=== PATIENT | male | born 1995 | race Caucasian/White ===

== ENCOUNTER 2017-10-24 07:07 | Emergency (ER) | payer OTHER ==
[2017-10-24] MEDS ORDERED: Sodium Chloride 0.9% 1000 ML 1,000 ML IV STA ×2 (07:35→10:17)
[2017-10-24] MEDS ORDERED: Zofran 4 MG/2 ML VIAL IV ONE (07:35)
--- NOTE | 2017-10-24 07:40 | ERPHSYRPT ---
- History of Present Illness Time Seen by Provider: 10/24/17 07:34 Source: patient, EMS, police Exam Limitations: intoxication Physician History: The patient is a 22-year-old male brought in by ambulance with the [facility] from a local town where he was found stumbling and apparently intoxicated this morning by people in town. One neighbor reports that he had fallen into their small kiddie pool 3 or 4 times. Another neighbor stated that he had fallen into their small glass light ornaments around their flower garden. When the patient arrives, he was not able to communicate at all. He had been vomiting after being transported. He arrives in a c-collar because there was a small laceration to the back of his head and it was unclear if his neck was involved. After the patient had been here for a few minutes, he began to verbalize that he was at a local bar drinking large quantities of beer. Timing/Duration: today Severity: severe Modifying Factors: Improves With: nothing Associated Symptoms: nausea, vomiting, other (intoxication) Allergies/Adverse Reactions: UNOBTAINABLE Allergy (Unverified 10/24/17 07:30) Home Medications: No Reportable Medications [No Reported Medications] 10/24/17 [History] - Review of Systems Constitutional: No Fever, No Chills Eyes: No Symptoms Ears, Nose, & Throat: No Symptoms Respiratory: No Cough, No Dyspnea Cardiac: No Chest Pain, No Edema, No Syncope Abdominal/Gastrointestinal: Nausea, Vomiting, No Abdominal Pain, No Diarrhea Genitourinary Symptoms: No Symptoms Musculoskeletal: Fall, Injury Skin: No Rash Neurological: Gait Changes, Lethargy, Speech Changes, Other (intoxication) Psychological: Alcohol Abuse Endocrine: No Symptoms Hematologic/Lymphatic: No Symptoms Immunological/Allergic: No Symptoms All Other Systems: Reviewed and Negative - Past Medical History Other Medical History: UNABLE TO OBTAIN - Past Surgical History Other Surgical History: UNABLE TO OBTAIN - Nursing Vital Signs Nursing Vital Signs: Initial Vital Signs Temperature 97.6 F 10/24/17 07:29 Pulse Rate 67 10/24/17 07:29 Respiratory Rate 16 10/24/17 07:29 Blood Pressure 126/72 10/24/17 07:29 O2 Sat by Pulse Oximetry 99 10/24/17 07:29 Pain Scale Pain Intensity 0 - Physical Exam General Appearance: moderate distress Eye Exam: PERRL/EOMI, eyes nml inspection Ears, Nose, Throat Exam: normal ENT inspection, TMs normal, pharynx normal, moist mucous membranes Neck Exam: normal inspection, non-tender, supple, full range of motion Respiratory Exam: normal breath sounds, lungs clear, No respiratory distress Cardiovascular Exam: regular rate/rhythm, normal heart sounds, normal peripheral pulses Gastrointestinal/Abdomen Exam: soft, normal bowel sounds, No tenderness, No mass Male Genitalia Exam: normal genitalia Rectal Exam: not done Back Exam: normal inspection, normal range of motion, No CVA tenderness, No vertebral tenderness Extremity Exam: normal inspection, normal range of motion, pelvis stable Neurologic Exam: intoxicated appearance, slurred speech Skin Exam: normal color, laceration (small laceration to occiput) Lymphatic Exam: No adenopathy SpO2 Interpretation: normal SpO2: 99 Oxygen Delivery: Room Air - Course EKG Interpreted by Me: RATE, Sinus Rhythm, NORMAL AXIS, NORMAL INTERVALS, NORMAL QRS, NORMAL ST-T Ordered Tests: Active Orders 24 hr Category Date Time Status Manager Legal STAT Care 10/24/17 07:35 Active EKG-ER Only STAT Care 10/24/17 07:35 Active IV Insertion STAT Care 10/24/17 07:35 Active ACETAMINOPHEN Stat Lab 10/24/17 07:33 Completed CBC W DIFF Stat Lab 10/24/17 07:33 Completed CMP Stat Lab 10/24/17 07:33 Completed ETHYL ALCOHOL Stat Lab 10/24/17 07:33 Completed ETHYL ALCOHOL Stat Lab 10/24/17 11:45 Completed SALICYLATE Stat Lab 10/24/17 07:33 Completed UA W/RFX UR CULTURE Stat Lab 10/24/17 07:37 Completed Urine Triage Profile Stat Lab 10/24/17 07:37 Completed Medication Summary Discontinued Medications Generic Name Dose Route Start Last Admin Trade Name Freq PRN Reason Stop Dose Admin Sodium Chloride 1,000 mls @ 999 mls/hr 10/24/17 07:35 10/24/17 09:19 Sodium Chloride 0.9% 1000 Ml IV 10/24/17 08:35 Infused .Q1H1M STA Infusion Sodium Chloride Confirm 10/24/17 07:53 Sodium Chloride 0.9% 1000 Ml Administered 10/24/17 07:54 Dose 1,000 mls @ ud .ROUTE .STK-MED ONE Sodium Chloride 1,000 mls @ 999 mls/hr 10/24/17 10:17 10/24/17 11:31 Sodium Chloride 0.9% 1000 Ml IV 10/24/17 11:17 Infused .Q1H1M STA Infusion Sodium Chloride Confirm 10/24/17 10:21 Sodium Chloride 0.9% 1000 Ml Administered 10/24/17 10:22 Dose 1,000 mls @ ud .ROUTE .STK-MED ONE Ondansetron HCl 4 mg 10/24/17 07:35 10/24/17 07:46 Zofran 4 Mg/2 Ml Vial IV 10/24/17 07:36 4 mg STAT ONE Administration Lab/Rad Data: Laboratory Result Diagrams 10/24/17 07:33 10/24/17 07:33 Laboratory Results 10/24/17 10/24/17 10/24/17 Range/Units 11:45 07:37 07:37 WBC (4.0-10.5) K/mm3 RBC (4.1-5.6) M/mm3 Hgb (12.5-18.0) gm/dl Hct (42-50) % MCV (78-100) fl MCH (26-32) pg MCHC (32-36) g/dl RDW (11.5-14.0) % Plt Count (150-450) K/mm3 MPV (6-9.5) fl Gran % (36.0-66.0) % Eos # (Auto) (0-0.5) Absolute Lymphs (auto) (1.0-4.6) Absolute Monos (auto) (0.0-1.3) Lymphocytes % (24.0-44.0) % Monocytes % (0.0-12.0) % Eosinophils % (0.00-5.0) % Basophils % (0.0-0.4) % Absolute Granulocytes (1.4-6.9) Basophils # (0-0.4) Sodium (137-145) mmol/L Potassium (3.5-5.1) mmol/L Chloride (98-107) mmol/L Carbon Dioxide (22-30) mmol/L Anion Gap (5-15) MEQ/L BUN (9-20) mg/dL Creatinine (0.66-1.25) mg/dL Estimated GFR ML/MIN Glucose (74-106) mg/dL Calcium (8.4-10.2) mg/dL Total Bilirubin (0.2-1.3) mg/dL AST (17-59) U/L ALT (0-50) U/L Alkaline Phosphatase (38-126) U/L Serum Total Protein (6.3-8.2) g/dL Albumin (3.5-5.0) g/dL Ur Collection Type CATH Urine Color YELLOW (YELLOW) Urine Appearance CLEAR (CLEAR) Urine pH 5.0 (5-6) Ur Specific Gibbs 1.010 (1.005-1.025) Urine Protein NEGATIVE (Negative) Urine Ketones NEGATIVE (NEGATIVE) Urine Blood NEGATIVE (0-5) Ethan/ul Urine Nitrite NEGATIVE (NEGATIVE) Urine Bilirubin NEGATIVE (NEGATIVE) Urine Urobilinogen NORMAL (0-1) mg/dL Ur Leukocyte Esterase NEGATIVE (NEGATIVE) Urine Culture Reflexed NO (NO) Urine Glucose NEGATIVE (NEGATIVE) mg/dL Salicylates (2-20) mg/dL Urine Opiates Level NEGATIVE (NEGATIVE) Ur Methadone NEGATIVE (NEGATIVE) Acetaminophen (10-30) ug/ml Urine Barbiturates NEGATIVE (NEGATIVE) Ur Phencyclidine (PCP) NEGATIVE (NEGATIVE) Urine Amphetamine NEGATIVE (NEGATIVE) U Benzodiazepine Level NEGATIVE (NEGATIVE) Urine Cocaine NEGATIVE (NEGATIVE) Urine Marijuana (THC) NEGATIVE (NEGATIVE) Ethyl Alcohol 236 H (0-10) mg/dL Specimen Received 10/24/17 0730 10/24/17 10/24/17 Range/Units 07:33 07:33 WBC 12.1 H (4.0-10.5) K/mm3 RBC 4.90 (4.1-5.6) M/mm3 Hgb 14.1 (12.5-18.0) gm/dl Hct 40.2 L (42-50) % MCV 82.0 (78-100) fl MCH 28.8 (26-32) pg MCHC 35.1 (32-36) g/dl RDW 12.9 (11.5-14.0) % Plt Count 270 (150-450) K/mm3 MPV 9.8 H (6-9.5) fl Gran % 84.6 H (36.0-66.0) % Eos # (Auto) 0.01 (0-0.5) Absolute Lymphs (auto) 1.45 (1.0-4.6) Absolute Monos (auto) 0.37 (0.0-1.3) Lymphocytes % 12.0 L (24.0-44.0) % Monocytes % 3.1 (0.0-12.0) % Eosinophils % 0.1 (0.00-5.0) % Basophils % 0.2 (0.0-0.4) % Absolute Granulocytes 10.20 H (1.4-6.9) Basophils # 0.02 (0-0.4) Sodium 144 (137-145) mmol/L Potassium 3.5 (3.5-5.1) mmol/L Chloride 106 (98-107) mmol/L Carbon Dioxide 22 (22-30) mmol/L Anion Gap 19.8 H (5-15) MEQ/L BUN 10 (9-20) mg/dL Creatinine 0.70 (0.66-1.25) mg/dL Estimated GFR > 60.0 ML/MIN Glucose 136 H (74-106) mg/dL Calcium 8.2 L (8.4-10.2) mg/dL Total Bilirubin 0.20 (0.2-1.3) mg/dL AST 20 (17-59) U/L ALT 17 (0-50) U/L Alkaline Phosphatase 84 (38-126) U/L Serum Total Protein 7.0 (6.3-8.2) g/dL Albumin 4.2 (3.5-5.0) g/dL Ur Collection Type Urine Color (YELLOW) Urine Appearance (CLEAR) Urine pH (5-6) Ur Specific Gibbs (1.005-1.025) Urine Protein (Negative) Urine Ketones (NEGATIVE) Urine Blood (0-5) Ethan/ul Urine Nitrite (NEGATIVE) Urine Bilirubin (NEGATIVE) Urine Urobilinogen (0-1) mg/dL Ur Leukocyte Esterase (NEGATIVE) Urine Culture Reflexed (NO) Urine Glucose (NEGATIVE) mg/dL Salicylates < 1.0 L (2-20) mg/dL Urine Opiates Level (NEGATIVE) Ur Methadone (NEGATIVE) Acetaminophen < 10 L (10-30) ug/ml Urine Barbiturates (NEGATIVE) Ur Phencyclidine (PCP) (NEGATIVE) Urine Amphetamine (NEGATIVE) U Benzodiazepine Level (NEGATIVE) Urine Cocaine (NEGATIVE) Urine Marijuana (THC) (NEGATIVE) Ethyl Alcohol 344 H (0-10) mg/dL Specimen Received - Progress Progress: improved Progress Note: 10/24/17 12:48 After 2 Liters NS IV, pt is feeling better with blood alcohol of 0.236 down from 0.344. Counseled pt/family regarding: lab results, diagnosis, need for follow-up - Departure Time of Disposition: 12:49 Departure Disposition: Home Clinical Impression: Alcohol intoxication, Alcohol abuse Condition: Stable Critical Care Time: No Additional Instructions: You had acute alcohol intoxication. You were given fluids by IV in the ER. You also have an alcohol abuse problem. You need to follow-up for counseling to help with your alcohol abuse.
[2017-10-24 07:51] LABS: BASOPHIL % 0.2 % (0.0-0.4); Basophil (Absolute #) 0.02 (0-0.4); Eosinophil % 0.1 % (0.00-5.0); Eosinophil (Absolute #) 0.01 (0-0.5); Granulocytes % 84.6 % (36.0-66.0); Hematocrit 40.2 % (42-50); Hemoglobin 14.1 gm/dl (12.5-18.0); Lymphocyte (Absolute #) 1.45 (1.0-4.6); Mean Corpuscular Hemoglobin 28.8 pg (26-32); Mean Corpuscular Hgb Concent. 35.1 g/dl (32-36); Mean Platelet Volume 9.8 fl (6-9.5); Monocyte (Absolute #) 0.37 (0.0-1.3); Monocytes % 3.1 % (0.0-12.0); Platelet Count 270 K/mm3 (150-450); Red Cell Distribution Width 12.9 % (11.5-14.0); White Blood Count 12.1 K/mm3 (4.0-10.5)
[2017-10-24] MEDS ORDERED: Sodium Chloride 0.9% 1000 ML 1,000 ML ONE ×2 (07:53→10:21)
[2017-10-24 07:54] LABS: Appearance CLEAR (CLEAR); Bilirubin NEGATIVE (NEGATIVE); Blood NEGATIVE Ery/ul (0-5); Glucose NEGATIVE (NEGATIVE); Ketones NEGATIVE (NEGATIVE); Leukocyte Esterase NEGATIVE (NEGATIVE); Nitrite NEGATIVE (NEGATIVE); Protein,Urine Dip NEGATIVE (Negative); Urobilinogen NORMAL mg/dL (0-1)
[2017-10-24 08:09] LABS: Amphetamine,Urine NEGATIVE (NEGATIVE); Barbiturate,Urine NEGATIVE (NEGATIVE); Benzodiazepine,Urine NEGATIVE (NEGATIVE); Cocaine,Urine NEGATIVE (NEGATIVE); Methadone,Urine NEGATIVE (NEGATIVE); Opiate,Urine NEGATIVE (NEGATIVE); PCP,Urine NEGATIVE (NEGATIVE); THC,Urine NEGATIVE (NEGATIVE)
[2017-10-24 08:16] LABS: ALBUMIN 4.2 g/dL (3.5-5.0); ALKALINE PHOSPHATASE 84 U/L (38-126); ANION GAP 19.8 MEQ/L (5-15); BLOOD UREA NITROGEN 10 mg/dL (9-20); CHLORIDE 106 mmol/L (98-107); Calcium 8.2 mg/dL (8.4-10.2); Carbon Dioxide 22 mmol/L (22-30); Glucose 136 mg/dL (74-106); Potassium 3.5 mmol/L (3.5-5.1); SGOT/AST 20 U/L (17-59); SGPT/ALT 17 U/L (0-50); SODIUM 144 mmol/L (137-145)
[2017-10-24 08:24] LABS: ACETAMINOPHEN < 10 ug/ml (10-30); ETHYL ALCOHOL 344 mg/dL (0-10); SALICYLATE < 1.0 mg/dL (2-20)
[2017-10-24 10:10] VITALS: O2SAT 99
[2017-10-24 13:00] VITALS: BP 138/62; PULSE 88
== END 2017-10-24 13:07 | disposition home or self-care (01) ==
LOC: ED 07:07
DX: F10.129 Alcohol abuse with intoxication, unspecified (principal); F10.10 Alcohol abuse, uncomplicated
CPT/HCPCS: 36415; 80053; 80307; 81002; 85025; 93005; 93041; 96360; 96361; 96374; 99284; G0481; J2405; G0480